=== PATIENT | female | born 1965 | race African-American/Black ===

== ENCOUNTER → 2018-09-09 | Outpatient (CLI) | payer OTHER ==
[~2018-09-09] MED LIST: GADOBUTROL 10 MMOL/10 ML VIAL IV ONE; HYDR-2869 PO; POTA10TA17 PO
--- NOTE | 2018-09-09 16:39 | KCIC ---
MRI study of the left lower leg with and without contrast Clinical indications: Left lower leg pain for years. Possible mass. TECHNIQUE: Pre and postcontrast enhanced MRI sequences of the left lower leg were performed in all 3 planes. A total of 8 cc of Gadavist was given intravenously. COMPARISON: None available. FINDINGS: There is moderate periosteal soft tissue edema of the anterior medial aspect of the shaft of the right tibia. No underlying T2 bone marrow edema or T1 marrow signal abnormality or cortical signal abnormality or fracture is evident. This is consistent with grade 1 medial tibial stress syndrome. There is mild subcutaneous soft tissue edema circumferentially involving the left lower leg. Otherwise no muscle edema is evident. No muscle tear is seen. No soft tissue mass or contrast-enhancing lesion is seen. IMPRESSION: Grade 1 medial tibial stress syndrome i.e. silva splints. No fracture is seen. No soft tissue mass is evident. Electronically signed by: Kenn Walker MD (09/09/2018 4:37 PM) [id number]
== END | disposition home or self-care (01) ==
LOC: EDSEX 14:15 → KCIC MRI 14:15
PROVIDERS: ATTEND Orthopaedic Surgery
DX: S86.892A Other injury of other muscle(s) and tendon(s) at lower leg level, left leg, initial encounter (principal); I10 Essential (primary) hypertension; X58.XXXA Exposure to other specified factors, initial encounter; Y93.89 Activity, other specified; Y92.89 Other specified places as the place of occurrence of the external cause; Y99.8 Other external cause status
CPT/HCPCS: 73720; A9585